=== PATIENT | female | born 1935 | race Caucasian/White ===

== ENCOUNTER 2016-09-19 03:42 | Emergency (ER) | payer MEDICARE ==
[~2016-09-19] VITALS: Ht 177.8 cm; Wt 75.5 kg
[~2016-09-19 03:42] MED LIST: ADVA250A INH; ASPI81TA82 PO; BETH25TA PO; BYST10TA2 PO; DIAZ5 PO; ELID1CRE; ESTR.3 PO; FIBECHW2 CHEW; LANSO15 PO; LEVO.1 PO; NAPR-576 PO; ROSU40 PO; SENO8.6T6 PO; SPIRCAP INH; STOO100C PO; THER650C PO; ULTR50TA PO; VITA100017 PO; VITATAB25 PO; ZOLP10TA3 PO
[2016-09-19 03:50] VITALS: BP 132/77; PULSE 82; RESP 18; TEMP 98.8; O2SAT 98
[2016-09-19] MEDS ORDERED: TETANUS/DIPHTHERIA TOXOID ADULT 0.5 ML VIAL IM ONE (04:15)
--- NOTE | 2016-09-19 04:15 | PD ---
HPI Chief Complaint: injury Time Seen by Provider: 04:15 Travel History International Travel<30 days: No Contact w/Intl Traveler<30days: No Traveled to known affect area: No History of Present Illness HPI 81-year-old female presents to the emergency department by private transportation for evaluation of right lower leg injury. According the patient just prior to arrival to the emergency department she was up out of bed to go the bathroom and while in the bathroom lost her balance and scraped her right anterior strickland against the toilet sustaining a large skin tear. Patient initially tried to repair the wound on her own but was not successful and presents to the emergency department now for wound care. Patient denies falling to the ground. Patient did not hit her head did not have loss of consciousness did not injure her neck back chest abdomen pelvis or other extremities. Patient does complain of some right toe injury. Patient's tetanus status is not current. Patient does not take blood thinning agents, reportedly. Patient does not complain of significant pain secondary to history of peripheral neuropathy. PFSH Past Medical History Narrative Medical Asthma anxiety breast cancer mastectomy COPD palpitations peripheral neuropathy cholecystectomy hysterectomy foot surgery thyroid disease cardiac stents herniorrhaphy; no tobacco use; nursing notes reviewed Arthritis: Yes Asthma: Yes Autoimmune Disease: No Blood Disorders: No (BLEED EASY) Anxiety: Yes Heart Rhythm Problems: Yes Cancer: Yes (RIGHT BREAST, mastectomy) Cardiovascular Problems: Yes (PALPITATIONS) High Cholesterol: No Chest Pain: No Congestive Heart Failure: No COPD: Yes Cerebrovascular Accident: No Diabetes: No Diminished Hearing: No Endocrine: Yes Gastrointestinal Disorders: No GERD: No Glaucoma: No Genitourinary: Yes Headaches: Yes Hepatitis: No Hiatal Hernia: Yes Hypertension: No Immune Disorder: No Kidney Stones: No Musculoskeletal: Yes (BACK PAIN & PERIPHRAL NEUROPATHY) Neurologic: Yes (FOOT SURGERY, HYSTERECTOMY, GALL BLADDER., RIGHT MASECTOMY, GALL BLADDER) Psychiatric: No Reproductive: Yes ( 2 CHILDREN; ) Respiratory: Yes (pneumonia recently , copd, on home oxygen) Integumentary: No Immunizations Current: Yes Migraines: No Myocardial Infarction: No Radiation Therapy: Yes (11 YEARS AGO) Renal Failure: No Seizures: No Sleep Apnea: No Thyroid Disease: Yes Ulcer: No PNEUMOCCOCAL Vaccine (Year): 5 Past Surgical History Abdominal Surgery: Yes (HERNIA, mary) AICD: No Appendectomy: No Arteriovenous Shunt: No Cardiac Surgery: Yes (stents) Cholecystectomy: Yes Ear Surgery: No Endocrine Surgery: No Eye Surgery: No Genitourinary Surgery: No Gynecologic Surgery: Yes (MASTECTOMY) Hysterectomy: Yes Insulin Pump: No Joint Replacement: No Mastectomy: Yes (right side) Oral Surgery: No Pacemaker: No Thoracic Surgery: No Other Surgery: Yes (back, hernia) Social History Alcohol Use: No Tobacco Use: Yes (FORMER) Substance Use: No Allergies-Medications (Allergen,Severity, Reaction): Coded Allergies: Adhesives (Verified Allergy, Severe, TAPE PULLS SKIN OFF, 09/19/16) Ceclor (Verified Allergy, Severe, 09/19/16) Contrast Media (Verified Allergy, Severe, Hives, 09/19/16) Daypro (Verified Allergy, Severe, 09/19/16) Evista (Verified Allergy, Severe, VERY ANGRY, 09/19/16) Hydrocodone (Verified Allergy, Severe, 09/19/16) Keflex (Verified Allergy, Severe, N & V, HEADACHE, 09/19/16) Meclizine (Unverified Allergy, Severe, 09/19/16) Metaxalone (Unverified Allergy, Severe, 09/19/16) Methadone (Verified Allergy, Severe, Hallucinations,CLAUSTROPHOBIA, ) Morphine (Verified Allergy, Severe, Rash, 09/19/16) Paxil (Verified Allergy, Severe, SLEEPINESS, 09/19/16) Prednisone (Unverified Allergy, Severe, 09/19/16) Sulfa (Verified Allergy, Severe, UNKNOWN , 09/19/16) Uncoded Allergies: Imiqimod (Allergy, Intermediate, Redness, 09/19/16) Reported Meds & Prescriptions Reported Meds & Active Scripts Active Reported [Oxygen] 2 Liter NASAL HS Lasix (Furosemide) 20 Mg Tab 20 Mg PO 3XWEEK Lasix (Furosemide) 20 Mg Tab 20 Mg PO DAILY Bystolic (Nebivolol) 10 Mg Tab 10 Mg PO DAILY Tramadol (Tramadol HCl) 50 Mg Tab 50 Mg PO BID PRN [Purelax] 1 Cap PO TID Ambien (Zolpidem Tartrate) 10 Mg Tab 10 Mg PO HS PRN Spiriva Handihaler (Tiotropium Inh) 18 Mcg Cap 18 Mcg INH DAILY 1 capsule = 18 mcg Theracran Hp (Cranberry (Vaccinium Macrocarpon)) 180 Mg Cap 650 Mg PO BID Senokot S (Sennosides-Docusate Sodium) 8.6-50 Mg Tab 1 Tab PO DAILY Crestor (Rosuvastatin Calcium) 5 Mg Tab 5 Mg PO DAILY Prevacid (Lansoprazole) 30 Mg Capdr 30 Mg PO BID Elidel 1% Topical (Pimecrolimus 1% Topical) 30 Gram Cream Synthroid (Levothyroxine Sodium) 100 Mcg Tab 100 Mcg PO DAILY Premarin (Estrogens Conjugated) 0.625 Mg Tab 0.625 Mg PO DAILY Diazepam 5 Mg Tab 5 Mg PO DAILY D-2000 Maximum Strength (Cholecalciferol) 2,000 Unit Tab 2,000 Units PO DAILY Aspirin 81 Mg Tabdr 81 Mg PO DAILY Advair Diskus Inh (Fluticasone-Salmeterol Inh) 250-50 Mcg/Blist Aer 1 Puff INH BID Rinse mouth after use. Review of Systems Except as stated in HPI: all other systems reviewed are Neg General / Constitutional: No: Fever, Chills HENT: No: Congestion Cardiovascular: No: Chest Pain or Discomfort, Syncope Respiratory: No: Shortness of Breath Gastrointestinal: No: Abdominal Pain Genitourinary: No: Flank Pain Musculoskeletal: No: Myalgias, Arthralgias Skin: Positive Other (skin tear RLE and toe injury right foot) Neurologic: No: Weakness Psychiatric: No: Anxiety Hematologic/Lymphatic: No: Lymph Node Enlargement Physical Exam Narrative GENERAL: Well-developed elderly female in no acute distress no respiratory distress SKIN: Warm and dry. HEAD: Normocephalic. EYES: No scleral icterus. No injection or drainage. NECK: Supple, trachea midline. No JVD or lymphadenopathy. CARDIOVASCULAR: Regular rate and rhythm without murmurs, gallops, or rubs. RESPIRATORY: Breath sounds equal bilaterally. No accessory muscle use. GASTROINTESTINAL: Abdomen soft, non-tender, nondistended. MUSCULOSKELETAL: No cyanosis, or edema. Large skin tear 7 cm x 7 cm to the right lower leg. Foot identifies no deformity dorsalis pedis pulse 2+ to palpation no ecchymosis or abrasion capillary refill brisk and less than 2 seconds per digit. Sensory exam diminished secondary to chronic peripheral neuropathy. BACK: Nontender without obvious deformity. No CVA tenderness. Data Data Last Documented VS Vital Signs Date Time Temp Pulse Resp B/P Pulse Ox O2 Delivery O2 Flow Rate FiO2 09/19/16 03:50 98.8 82 18 132/77 98 Orders Wound Care (09/19/16 04:05) Foot, Complete ([id number]) (09/19/16 ) Ice/Cold Pack (09/19/16 04:05) Tetanus/Diphtheria Tox Adult (Tetanus/Di (09/19/16 04:15) Tibia/Fibula (Ap/Lat) (09/19/16 ) MDM Medical Decision Making Medical Screen Exam Complete: Yes Emergency Medical Condition: Yes Medical Record Reviewed: Yes Interpretation(s) Last Impressions Tibia/Fibula X-Ray 09/19/16 0000 Signed Impressions: Service Date/Time: Monday, September 19, 2016 05:17 - CONCLUSION: 1. There is no evidence of acute fracture. Lalo Kim MD Foot X-Ray 09/19/16 0000 Signed Impressions: Service Date/Time: Monday, September 19, 2016 05:12 - CONCLUSION: 1. Fracture proximal phalanx fifth digit Lalo Kim MD Differential Diagnosis Skin tear, contusion, fracture Narrative Course Wound site cleansed and irrigated with normal saline and dilute hydrogen peroxide skin tear flap was reapproximated at bedside by chemical processing technician staff with Steri-Strips applied and Polysporin dressing applied along with Ad wrap. Patient tolerated skin tear alignment well. Tetanus status updated. Imaging studies ordered Imaging of the right lower leg and right foot identified no acute subluxation dislocation or fracture. Patient is stable for outpatient management. Patient placed on oral antibiotic. Patient encouraged to complete course of antibiotic to keep one site clean and dry and to follow-up with primary care provider. Patient also encouraged to elevate lower extremity. Diagnosis Primary Impression: Skin tear of right lower leg without complication Qualified Code: S81.811A - Skin tear of right lower leg without complication, initial encounter Additional Impressions: Contusion of right foot including toes Qualified Code: S90.121A - Contusion of right foot including toes, initial encounter Fracture of toe of right foot Qualified Code: S92.514A - Closed nondisplaced fracture of proximal phalanx of lesser toe of right foot, initial encounter Referrals: Primary Care Physician call for appointment Patient Instructions: General Instructions Additional Instructions: Elevate right lower extremity Keep one site clean and dry Change dressing daily Follow wound care directions Return to the emergency department for any concerns or change in condition Take as tolerated acetaminophen/Tylenol for minor discomfort Wear firm soled shoe; may use oumar tape technique to support toe for comfort purposes Use acetaminophen/Tylenol for pain as often as every 4-6 hours Med/Other Pt SpecificInfo: Prescription(s) given Scripts Doxycycline Hyclate 100 Mg [id number] Mg PO BID #10 CAP Ref 0 Prov:Sophie Singh MD 09/19/16 Disposition: 01 DISCHARGE HOME Condition: Stable Sophie Singh MD Sep 19, 2016 04:15
[2016-09-19] MEDS ORDERED: ASPI1TAB69 PO (04:33)
[2016-09-19] MEDS ORDERED: ADVA250A INH (04:33)
[2016-09-19] MEDS ORDERED: D-20TAB3 PO (04:36)
[2016-09-19] MEDS ORDERED: DIAZ5TAB PO (04:37)
[2016-09-19] MEDS ORDERED: ESTR.625 PO (04:37)
[2016-09-19] MEDS ORDERED: LEVO.1 PO (04:38)
[2016-09-19] MEDS ORDERED: ELID1CRE (04:39)
[2016-09-19] MEDS ORDERED: ROSU5 PO (04:41)
[2016-09-19] MEDS ORDERED: PREV30CA11 PO (04:41)
[2016-09-19] MEDS ORDERED: SENN1TAB17 PO (04:42)
[2016-09-19] MEDS ORDERED: THER650C PO (04:44)
[2016-09-19] MEDS ORDERED: SPIRCAP INH (04:46)
[2016-09-19] MEDS ORDERED: AMBI10TA PO (04:47)
[2016-09-19] MEDS ORDERED: PURELAX PO (04:49)
[2016-09-19] MEDS ORDERED: TRAM50TA PO (04:49)
[2016-09-19] MEDS ORDERED: BYST10TA2 PO (04:54)
[2016-09-19] MEDS ORDERED: FURO1TAB62 PO ×2 (04:55)
[2016-09-19] MEDS ORDERED: Oxygen NASAL (04:56)
--- NOTE | 2016-09-19 05:32 | RADHPO ---
EXAM DATE/TIME: 09/19/2016 05:12 [facility] COMPARISON: No previous studies available for comparison. INDICATIONS : Right foot pain from fall today. MEDICAL HISTORY : Emphysema. SURGICAL HISTORY : Total knee replacement, right. Coronary artery stent. ENCOUNTER: Initial ACUITY: 1 day PAIN SCORE: 2/10 LOCATION: Right Foot FINDINGS: On the lateral view there are findings of nondisplaced fracture of the proximal phalanx of the fifth toe. Osseous structures are osteopenic. Old fractures of the third and fourth metatarsal heads are pr esent. Joint spaces are maintained. CONCLUSION: 1. Fracture proximal phalanx fifth digit Lalo Kim MD on September 19, 2016 at 5:28 Board Certified Radiologist. This report was verified electronically.
--- NOTE | 2016-09-19 05:33 | RADHPO ---
EXAM DATE/TIME: 09/19/2016 05:17 [facility] COMPARISON: No previous studies available for comparison. INDICATIONS : Laceration to right lower leg. MEDICAL HISTORY : Emphysema. SURGICAL HISTORY : Total knee replacement, right. Coronary artery stent. ENCOUNTER: Initial ACUITY: 1 day PAIN SCORE: 2/10 LOCATION: Right lower leg FINDINGS: There is no evidence of acute fracture. Bony mineralization is normal. No foreign body is identified. Total knee arthroplasty is present. CONCLUSION: 1. There is no evidence of acute fracture. Lalo Kim MD on September 19, 2016 at 5:31 Board Certified Radiologist. This report was verified electronically.
[2016-09-19 05:40] VITALS: BP 127/71; PULSE 74; RESP 18; O2SAT 94
[2016-09-19] MEDS ORDERED: DOXY100C PO (05:52)
== END 2016-09-19 06:07 | disposition home or self-care (01) ==
LOC: PHED 03:42
DX: S81.811A Laceration without foreign body, right lower leg, initial encounter (principal); S92.514A Nondisplaced fracture of proximal phalanx of right lesser toe(s), initial encounter for closed fracture; S90.121A Contusion of right lesser toe(s) without damage to nail, initial encounter; E07.9 Disorder of thyroid, unspecified; Z23 Encounter for immunization; Z87.39 Personal history of other diseases of the musculoskeletal system and connective tissue; Z87.09 Personal history of other diseases of the respiratory system; Z86.79 Personal history of other diseases of the circulatory system; Z85.3 Personal history of malignant neoplasm of breast; Z87.448 Personal history of other diseases of urinary system; Z86.69 Personal history of other diseases of the nervous system and sense organs; Z87.891 Personal history of nicotine dependence; W22.09XA Striking against other stationary object, initial encounter; Y92.002 Bathroom of unspecified non-institutional (private) residence as the place of occurrence of the external cause
CPT/HCPCS: 73590; 73630; 90471; 90714